=== PATIENT | female | born 1970 | race Caucasian/White ===

== ENCOUNTER → 2018-09-07 | Outpatient (CLI) | payer OTHER ==
[~2018-09-07] MED LIST: BUTA-1 PO; DOCU240C3 PO; IBU800 PO; NIF10 PO; PER PO; PREN-67 PO
--- NOTE | 2018-09-08 14:36 | RADIOLOGY IMAGING REPORT ---
FACILITY: [facility] - [place] PATIENT NAME: JOSEPH DASILVA : [id number] MR: [id number] V: [id number] EXAM DATE: [id number] ORDERING PHYSICIAN: JOESPH ALARCON TECHNOLOGIST: Amara Valdez RT(R)(CT) PROCEDURE:US RIGHT BREAST COMPARISON:None. INDICATIONS:Palpable Mass Retroareolar Right Breast FINDINGS: In the 5 o'clock position of the Right breast 4cm from the nipple in location of patient's palpable finding is a 3.5 x 1.7 x 3.4mm cyst. DIAGNOSTIC CATEGORY 2--BENIGN FINDING. RECOMMENDATIONS: ROUTINE MAMMOGRAM AND CLINICAL EVALUATION. IMPRESSION: BIRADS 2: Benign finding. There is a 3.5 x 1.7 x 3.4mm cyst in the 5 o'clock position of the Right breast 4cm from the nipple in the location of the patient's palpable finding. Dictated by: Bia Schilling M.D. on 09/07/2018 at 16:45 Transcribed by: BRIANNE on 09/08/2018 at 9:53 Approved by: Bia Schilling M.D. on 09/08/2018 at 14:35 [facility]
--- NOTE | 2018-09-08 14:36 | RADIOLOGY IMAGING REPORT ---
FACILITY[place] [facility] [place] PATIENT NAME: JOSEPH DASILVA : [id number] MR: [id number] V: [id number] EXAM DATE: [id number] ORDERING PHYSICIAN: JOESPH ALARCON TECHNOLOGIST: Amina Parson PROCEDURE:BILATERAL DIAGNOSTIC DIGITAL MAMMOGRAM WITH CAD ASSISTED INTERPRETATION & 3D TOMOSYNTHESIS COMPARISON:Prior mammograms 08/03/17, 03/26/14. INDICATIONS:Palpable Lump Right Retroareolar Breast FINDINGS: The breasts are heterogeneously dense which can obscure small masses. The parenchymal pattern has remained stable allowing for difference in mammographic technique & patient positioning. Today's Right breast Ultrasound demonstrated a small cyst in the 5 o'clock position of the Right breast in the location of the patient's palpable finding. DIAGNOSTIC CATEGORY 2--BENIGN FINDING. RECOMMENDATIONS: ROUTINE MAMMOGRAM AND CLINICAL EVALUATION. IMPRESSION: BIRADS 2: Benign finding. No significant mammographic abnormality identified. There is a small cyst in the 5 o'clock position of the Right breast as seen on Today's Right breast Ultrasound in the location of the patient's palpable finding. Dictated by: Bia Schilling M.D. on 09/07/2018 at 16:47 Transcribed by: BRIANNE on 09/08/2018 at 9:49 Approved by: Bia Schilling M.D. on 09/08/2018 at 14:35 [facility]
== END ==
LOC: MAMO 00:35
PROVIDERS: ATTEND Family Medicine
DX: N60.01 Solitary cyst of right breast (principal)
CPT/HCPCS: 77062; 77066